=== PATIENT | female | born 1985 | race Two or more races ===

== ENCOUNTER 2021-02-16 21:12 | Emergency (ER) | payer OTHER ==
[~2021-02-16] VITALS: Ht 157.5 cm; Wt 68.9 kg
--- NOTE | 2021-02-16 21:30 | NUR ---
RAD AT BED SIDE
--- NOTE | 2021-02-16 21:33 | NUR ---
[id number] FROM HOME FOR DIZZINESS AND RINGING IN EARS. PT AAOX4, VSS. RR EVEN & UNLABORED. DENIES CP, SOB, DIZZINESS, N/V, WEAKNESS AT THIS TIME. PT SEEN & EVAL'D BY NELIA JARVIS. WILL CONT TO MONITOR.
[2021-02-16 21:34] LABS: BASOPHILS % (AUTO) 0.3 % (0.0-2.0); EOSINOPHILS % (AUTO) 0.3 % (0.0-6.0); HEMATOCRIT 31 % (33-45); HEMOGLOBIN 9.6 g/dL (11.5-14.8); LYMPHOCYTES # (AUTO) 1.1 K/uL (0.8-4.8); LYMPHOCYTES % (AUTO) 16.1 % (20.0-44.0); MEAN CORPUSCULAR HGB CONC 31 g/dl (31.0-36.0); MEAN CORPUSCULAR VOLUME 68 fL (82-100); MONOCYTES # (AUTO) 0.3 K/uL (0.1-1.30); MONOCYTES % (AUTO) 4.9 % (2.0-12.0); NEUTROPHILS # (AUTO) 5.3 K/uL (1.8-8.9); NEUTROPHILS % (AUTO) 78.4 % (43.0-81.0); PLATELET COUNT (AUTO) 419 K/uL (150-450); RED BLOOD CELL COUNT(AUTO) 4.61 MIL/uL (4.0-5.2); WHITE BLOOD COUNT (AUTO) 6.8 K/uL (4.3-11.0)
[2021-02-16] MEDS: IV NS 0.9% 1,000 ML BAG IV ONE (21:35)
[2021-02-16] MEDS ORDERED: LORAZEPAM INJ 2 MG/ML VIAL ONE (21:38)
[2021-02-16 21:42] LABS: CALCIUM, SERUM 8.8 mg/dL (8.5-10.1); CREATININE 1.4 mg/dL (0.6-1.3)
[2021-02-16] MEDS: LORAZEPAM INJ 2 MG/ML VIAL IV ONE (21:42)
[2021-02-16] MEDS ORDERED: POTASSIUM CHLORIDE 20 MEQ TAB.PRT.SR PO ONE (22:00)
[2021-02-16] MEDS: POTASSIUM CHLORIDE 20 MEQ TAB.PRT.SR PO ONE (22:05)
[2021-02-16 22:57] VITALS: BP 126/70
--- NOTE | 2021-02-16 22:57 | NUR ---
PT IS MEDICALLY STABLE FOR D/C. IV removed. Catheter intact and site benign. Pressure and 4x4 applied to site. No bleeding noted.Patient discharged to home in stable condition. Written and verbal after care instructions given. Patient verbalizes understanding of instruction.
[2021-02-16 23:00] LABS: MONOCYTES % (MANUAL) 6 % (0-11.0); NEUTROPHILS % (MANUAL) 75 (42-76)
[2021-02-16 23:01] LABS: BASOPHILS % (MANUAL) 0 % (0.0-2.0); EOSINOPHILS % (MANUAL) 0 % (0-4); LYMPHOCYTES % (MANUAL) 19 % (16-48)
== END 2021-02-16 22:58 | disposition home or self-care (01) ==
LOC: ER 21:15
DX: R42 Dizziness and giddiness (principal); D64.9 Anemia, unspecified; E87.6 Hypokalemia; F41.9 Anxiety disorder, unspecified
CPT/HCPCS: 36415; 70450; 71045; 80048; 82550; 84702; 85007; 85025; 86850; 93005; 96361; 96374; 99285; J2060; J7030